=== PATIENT | female | born 1955 | race Caucasian/White ===

== ENCOUNTER → 2021-07-10 | Outpatient (CLI) | payer BC ==
[~2021-07-10] MED LIST: CIPR500 PO; CODGUAEL PO; CYCL10 PO; HYDACE10B PO; IBUP600 PO; LEVFLO500 PO; LISI20 PO; LOVA40 PO; NAPR500 PO; NAPR550 PO; PEGASYS; PROM25 PO; PSEU120ER PO; RIBA200; RXCODGUASY PO; RXNAPNA550 PO; RXPHEN200 PO
== END | disposition home or self-care (01) ==
LOC: LAB SHORT 15:48
DX: B36.9 Superficial mycosis, unspecified (principal); L01.00 Impetigo, unspecified; L03.116 Cellulitis of left lower limb
CPT/HCPCS: 87070; 87077; 87186; 87205

== ENCOUNTER 2021-11-28 16:13 | Emergency (ER) | payer OTHER ==
[~2021-11-28] VITALS: Ht 160 cm; Wt 74.8 kg
== END 2021-11-28 18:06 | disposition home or self-care (01) ==
LOC: ER 16:13
DX: S53.402A Unspecified sprain of left elbow, initial encounter (principal); S20.212A Contusion of left front wall of thorax, initial encounter; Z88.8 Allergy status to other drugs, medicaments and biological substances; Z79.899 Other long term (current) drug therapy; Z87.891 Personal history of nicotine dependence; W01.0XXA Fall on same level from slipping, tripping and stumbling without subsequent striking against object, initial encounter
CPT/HCPCS: 71101; 73080